=== PATIENT | male | born 1990 | race Caucasian/White ===

== ENCOUNTER 2016-08-15 18:02 | Emergency (ER) ==
[2016-08-15] MEDS ORDERED: PEN VK PO ONE (20:20)
--- NOTE | 2016-08-15 20:20 | PROVIDER DOCUMENTATION ---
HPI-EENT General - General Chief Complaint: Cold Symptoms Stated Complaint: COLD SX Time Seen by Provider: 08/15/16 20:14 Source: patient Allergies/Adverse Reactions: Patient Allergies Allergy/AdvReac Type Severity Reaction Status Date / Time No Known Allergies Allergy Verified 08/15/16 20:20 Home Medications: Home Medication List Medication Instructions Recorded Confirmed Last Taken Type Famotidine [Pepcid] 20 mg PO DAILY #20 tablet 08/15/16 Unknown Rx Ibuprofen [Motrin] 800 mg PO Q8H PRN PRN #20 tablet 08/15/16 Unknown Rx Penicillin V Potassium 500 mg PO BID #20 tablet 08/15/16 Unknown Rx - History of Present Illness-EENT General Nature of Presenting Problem: 26 year old WM presents with c/o subjective fever/chills, sore throat, cough for 3 days. pt reports his daughter was diagnosed with strep this week and his nephew was diagnosed with flu. cough is non-productive. throat pain is sharp, stabbing, exacerbated with swallowing, eating,drinking. denies alleviating factors. EENT Location: reports: throat Quality of Pain: reports: sharp, stabbing Severity: reports: mild Onset/Duration: reports: 3 days ago Timing: reports: still present, constant, getting worse Prearrival Treatment: Initiated no prearrival treatment, Not Used over the counter meds, Not Used prescription meds Associated Symptoms: reports: cough, fever, malaise, sore throat Review of Systems - Adult - REVIEW OF SYSTEMS - ADULT Constitutional: reports: see HPI, chills, fever. denies: fatique Eyes: reports: no symptoms reported. denies: discharge, blurred vision, double vision Ears, Nose, Mouth & Throat: reports: see HPI, throat pain, throat swelling. denies: ear discharge, ear pain, nose pain, loose teeth Cardiovascular: reports: no symptoms reported. denies: chest pain, palpitations , syncope Respiratory: reports: see HPI, cough. denies: chronic cough, dyspnea on exertion, excessive sputum production, hemoptysis, pleurisy, shortness of breath , wheezing Gastrointestinal: reports: no symptoms reported. denies: abdominal pain, diarrhea, nausea, vomiting Genitourinary: reports: no symptoms reported. denies: dysuria, hematuria, urgency Musculoskeletal: reports: no symptoms reported. denies: bone pain, joint pain, joint swelling, neck pain Integumentary: reports: no symptoms reported. denies: hives, itching, rash, skin sores/ulcer Neurological: reports: no symptoms reported. denies: ataxia, dizziness/vertigo , tremors Psychiatric: reports: no symptoms reported Endocrine: reports: no symptoms reported Hematologic/Lymphatic: reports: no symptoms reported Allergic/Immunologic: reports: no symptoms reported All Other Systems: Reviewed and Negative Past History - Adult - PAST MEDICAL HISTORY-ADULT Review of Records: reports: Old Records Reviewed, Nursing Assessment Review, Medications Reviewed, Social history reviewed & non-contributory. Major Childhood Illnesses: reports: denies history Cardiovascular: reports: HTN Respiratory: reports: denies history Gastrointestinal: reports: denies history Obstetrical/Gynecological: reports: denies history Genitourinary: reports: denies history Musculoskeletal: reports: denies history Neurological: reports: denies history Psychiatric: reports: denies history Endocrine/Immune: reports: denies history Other Conditions: reports: denies history - PRIOR SURGERIES/PROCEDURES Surgical/Procedure History: reports: none - IMMUNIZATION STATUS Childhood Immunizations: See Nurse Assessment Flu Vaccine: See Nurse Assessment - FAMILY HISTORY Family History: reviewed, not pertinent - SOCIAL HISTORY Smoking: cigarettes Provider spent 3-5 mins advising pt. on dangers of tobacco.: Discussed manners to quit use, and f/u contacts for add'l counseling. Substance Use: none/never Alcohol Use Frequency: never Physical Exam- EENT - Physical Exam EENT Initial Vital Signs Reviewed: Yes General Appearance: appears well, alert, no apparent distress. negative: mild distress, moderate distress, severe distress Eye Exam: bilateral eye: normal inspection Ear Exam: bilateral ear: auricle normal, canal normal, TM normal Nasal Exam: normal inspection. negative: active bleeding, discharge, dried blood, foreign body, sinus tenderness Throat Exam: normal mouth inspection, pharynx swelling, pharynx tenderness, tonsillar exudate, tonsillar swelling. negative: pharynx normal, dental tenderness, excessive drooling, foreign body, mandibular swelling, maxillary swelling, tongue swollen, trismus, uvula swelling, voice changes Neck: non-tender, full range of motion, supple, normal inspection. negative: C- spine tenderness, limited range of motion, tender lateral, tender midline Respiratory: chest non-tender, lungs clear, normal breath sounds, no pleuratic chest pain, no respiratory distress, no accessory muscle use. negative: respiratory distress, decreased breath sounds, accessory muscle use, crackles, rales, rhonchi, stridor, wheezing Cardiovascular: normal peripheral pulses, regular rate, rhythm Abdominal Exam: normal bowel sounds, non tender, soft Lymphatic: negative: cervical node tenderness Back Exam: normal inspection, no CVA tenderness, no vertebral tenderness. negative: CVA tenderness, decreased range of motion, vertebral tenderness Extremity: normal range of motion, non-tender, normal gait, normal inspection, no pedal edema, no calf tenderness, normal capillary refill Integumentary: normal color, normal turgor, warm/dry Neurologic: grossly normal, no motor/sensory deficits Psych/Mental Status: normal mood/affect, normal thought content, normal thought process, oriented x 3 Progress - PLAN OF CARE/RESULTS Progress/Plan/Lab Results: Orders Category Date Time Status Flu Swab [INFLUENZA SCREEN A/B] Stat Lab 08/15/16 18:25 Completed Ibuprofen [Motrin] Med 08/15/16 20:21 Discontinued 600 mg PO NOW ONE Penicillin V Potassium [Pen Vk] Med 08/15/16 20:20 Discontinued 500 mg PO NOW ONE Vital Signs - 24 hr 08/15/16 08/15/16 18:25 20:57 Temperature 97.6 F 97.8 F Pulse Rate 77 58 L Respiratory 20 18 Rate Blood Pressure 135/75 129/61 O2 Sat by Pulse 100 100 Oximetry Departure - Departure Time of Disposition Order: 20:18 DIAGNOSIS: Strep pharyngitis Disposition: HOME 01 Certified Medical Emergency: Emergent Condition: Stable Additional Instructions: ED Follow Up Instructions: You have been treated by a care provider in the Emergency Department. These instructions are being provided to you so you can have an understanding of how to care for yourself upon discharge. Upon discharge from the Emergency Department, you are responsible for making arrangements for follow-up care by a physician of your choice. Take all prescribed medications as directed. Return to the Emergency Department immediately for any new or worsening symptoms. You may call the Physician Referral phone number at [phone] to obtain a list of Physicians who are taking new patients. Prescriptions: Ibuprofen [Motrin] 800 mg PO Q8H PRN PRN #20 tablet PRN Reason: inflammation Penicillin V Potassium 500 mg PO BID #20 tablet Famotidine [Pepcid] 20 mg PO DAILY #20 tablet Referrals: None,PCP [Primary Care Provider] - [facility] [NON-[facility]FF] - Forms: Return to School/Parent Work Instructions: Pharyngitis, [id number] Attestation - Physician/ SHAVON Attestation Patient care was provided by Advanced Practice Provider:: Yes Advanced Practice Provider:: Momo Pineda Advanced Practice Provider documentation review:: The Mid-level provider documentation, treatment plan and medical decision making was reviewed by the physician who agrees with all treatment and medical decision making by the MLP.
[2016-08-15] MEDS ORDERED: MOTRIN PO ONE (20:21)
[2016-08-15 20:59] VITALS: BP 129/61
== END 2016-08-15 21:01 | disposition home or self-care (01) ==
LOC: ED 18:02
DX: J02.0 Streptococcal pharyngitis (principal); J00 Acute nasopharyngitis [common cold]; I10 Essential (primary) hypertension; R50.9 Fever, unspecified; R05 Cough; R53.81 Other malaise; R22.1 Localized swelling, mass and lump, neck; F17.210 Nicotine dependence, cigarettes, uncomplicated; Z71.6 Tobacco abuse counseling
CPT/HCPCS: 87804; 99283